=== PATIENT | female | born 1975 | race Caucasian/White ===

== ENCOUNTER 2025-08-14 15:33 | Outpatient (CLI) | payer OTHER, SELFPAY ==
--- NOTE | ~2025-08-14 | MM_ITS ---
EXAMINATION: MM screening [facility] w todd HISTORY: Screening TECHNIQUE: Craniocaudal and mediolateral oblique 3-D tomosynthesis images were obtained and synthetic 2-D images were generated. CAD analysis was submitted and interpreted. COMPARISON: No prior mammogram is available for comparison at this institution. BREAST PARENCHYMAL COMPOSITION: Dense: The breasts are heterogeneously dense, which may obscure small masses FINDINGS: There are scattered masses in the right breast located in the upper outer quadrants in the lower inner quadrant. There are clustered pleomorphic calcifications in the upper outer quadrant of the right breast posteriorly. There is a focal asymmetry in the upper inner quadrant of the left breast, posterior third. IMPRESSION: 1. Scattered right breast masses. Clustered right breast calcifications upper outer quadrant. Focal asymmetry upper inner quadrant of the left breast. 2. Additional mammographic views and possible breast ultrasound are recommended. BI-RADS Category 0: Incomplete: Needs additional imaging evaluation. Reviewed, dictated and finalized at location B. IMPRESSION: 1. Scattered right breast masses. Clustered right breast calcifications upper o uter quadrant. Focal asymmetry upper inner quadrant of the left breast. 2. Additional mammographic views and possible breast ultrasound are recommended . BI-RADS Category 0: Incomplete: Needs additional imaging evaluation.
== END 2025-08-14 15:34 | disposition home or self-care (01) ==
PROVIDERS: PCP Obstetrics & Gynecology; Visit Provider Obstetrics & Gynecology
DX: Z12.31 Encounter for screening mammogram for malignant neoplasm of breast (principal); N63.11 Unspecified lump in the right breast, upper outer quadrant; N64.89 Other specified disorders of breast; R92.1 Mammographic calcification found on diagnostic imaging of breast
CPT/HCPCS: 77063; 77067